=== PATIENT | female | born 1975 | race Caucasian/White ===

== ENCOUNTER → 2022-08-30 | Outpatient (CLI) | payer BC | LOC: RAD 09:51 | PROVIDERS: ATTEND Obstetrics & Gynecology | DX: Z12.31 Encounter for screening mammogram for malignant neoplasm of breast (principal) | CPT/HCPCS: 77063; 77067 ==

== ENCOUNTER → 2022-11-29 | Outpatient (CLI) | payer BC ==
--- NOTE | 2022-11-29 11:19 | Diagnostic Imaging Report ---
PROCEDURE: US Thyroid. TECHNIQUE: Multiple Real-time grayscale images were obtained of the thyroid in various projections. INDICATION: Hypothyroidism. COMPARISON: None available. FINDINGS: The right lobe of the thyroid gland measures 4.6 x 1.3 x 1.5 cm. It maintains a homogeneous echotexture without discrete nodule. The left lobe of the thyroid gland measures 4.8 x 1.2 x 1.6 cm. It maintains a homogeneous echotexture without discrete nodule. The isthmus is unremarkable. IMPRESSION: Unremarkable examination. Dictated by: Dictated on workstation # [id number]
== END ==
LOC: RAD 08:00
PROVIDERS: ATTEND Family Medicine
DX: E03.9 Hypothyroidism, unspecified (principal)
CPT/HCPCS: 76536